=== PATIENT | male | born 1960 | race Caucasian/White ===

== ENCOUNTER → 2017-10-18 | Outpatient (CLI) | payer OTHER | END | disposition home or self-care (01) | LOC: LABWHC1 07:02 | PROVIDERS: ATTEND Internal Medicine Cardiovascular Disease | DX: I25.10 Atherosclerotic heart disease of native coronary artery without angina pectoris (principal) | CPT/HCPCS: 36415; 83704 ==

== ENCOUNTER → 2018-02-22 | Outpatient (CLI) | payer OTHER | END | disposition home or self-care (01) | LOC: LABWHC1 07:38 | PROVIDERS: ATTEND Internal Medicine Cardiovascular Disease | DX: I25.10 Atherosclerotic heart disease of native coronary artery without angina pectoris (principal) | CPT/HCPCS: 36415; 83704 ==

== ENCOUNTER → 2018-07-16 | Outpatient (CLI) | payer OTHER | END | disposition home or self-care (01) | LOC: LABWHC1 07:07 | PROVIDERS: ATTEND Internal Medicine Cardiovascular Disease | DX: I25.10 Atherosclerotic heart disease of native coronary artery without angina pectoris (principal) | CPT/HCPCS: 36415; 83704 ==

== ENCOUNTER → 2018-09-09 | Outpatient (CLI) | payer OTHER | END | disposition home or self-care (01) | LOC: LABWHC1 08:33 | PROVIDERS: ATTEND Internal Medicine Cardiovascular Disease | DX: I25.10 Atherosclerotic heart disease of native coronary artery without angina pectoris (principal) | CPT/HCPCS: 36415; 83704 ==

== ENCOUNTER 2019-12-13 16:15 | Emergency (ER) | payer MEDICARE, OTHER ==
[2019-12-13 16:20] VITALS: TEMP 98.1
[2019-12-13] MEDS ORDERED: LIDOCAINE 1% INJ 10MG/ML (20 ML MDV) SQ ONE (16:35)
[2019-12-13 16:58] LABS: Basophils # (A) 0.1 k/uL (0-0.2); Basophils % (A) 1 %; Eosinophils # (A) 0.4 k/uL (0-0.7); Eosinophils % (A) 4 %; HCT 48.4 % (39.0-53.0); HGB 16.3 gm/dL (13.0-17.5); Lymphocytes # (A) 3.6 k/uL (1.0-4.8); Lymphocytes % (A) 34 %; MCH 30.8 pg (25.0-35.0); MCHC 33.6 g/dL (31.0-37.0); MCV 91.7 fL (80.0-100.0); Mean Platelet Volume 7.4; Monocytes # (A) 0.5 k/uL (0-1.0); Monocytes % (A) 5 %; Neutrophils # (A) 5.8 k/uL (1.3-7.7); Neutrophils % (A) 55 %; Platelet Count 358 k/uL (150-450); RBC 5.28 m/uL (4.30-5.90); RDW 13.4 % (11.5-15.5); WBC 10.7 k/uL (3.8-10.6)
--- NOTE | 2019-12-13 17:01 | ED ---
General Adult HPI - General Chief complaint: Skin/Abscess/Foreign Body Stated complaint: finger injury Time Seen by Provider: 12/13/19 16:15 Source: patient, RN notes reviewed, old records reviewed Mode of arrival: ambulatory Limitations: no limitations - History of Present Illness Initial comments: This is a 59-year-old male who presents emergency Department complaining of left finger infection. Patient states she slammed between 2 logs last week and since then has gotten swollen and tender. Patient states it looks like there is pus under his skin. Patient also complains that he noticed this morning there is a little swelling just behind the angle of his left jaw and he wonders if that was related. Patient denies any fever chills. Patient denies any red streaking up the finger hand or arm. Patient denies any other symptoms at this time. - Related Data Home Medications Medication Instructions Recorded Confirmed Fenofibrate Nanocrystallized 145 mg PO DAILY 05/11/15 06/27/17 [Tricor] Ondansetron Odt [Zofran Odt] 4 mg PO BID 06/27/17 06/27/17 Saxagliptin HCl [Onglyza] 2.5 mg PO DAILY 06/27/17 06/27/17 metFORMIN HCL ER [Glucophage Xr] 500 mg PO DAILY 06/27/17 06/27/17 Previous Rx's Medication Instructions Recorded Aspirin 81 mg PO DAILY #30 chew 06/30/17 Atorvastatin [Lipitor] 80 mg PO HS #30 tab 06/30/17 Clopidogrel [Plavix] 75 mg PO DAILY #30 tab 06/30/17 Losartan [Cozaar] 50 mg PO DAILY #30 tab 06/30/17 Metoprolol Tartrate [Lopressor] 25 mg PO BID #60 tab 06/30/17 Nitroglycerin Sl Tabs [Nitrostat] 0.4 mg SUBLINGUAL Q5M PRN #25 tab 06/30/17 Spironolactone [Aldactone] 12.5 mg PO DAILY #30 tab 06/30/17 Varenicline [Chantix Starter Pack] 0.5 mg PO PC-BRKFST #120 tab 06/30/17 Sulfamethoxazole/Trimethoprim 2 each PO BID 7 Days #28 tablet 12/13/19 [Bactrim DS 800-160 mg] Allergies Allergy/AdvReac Type Severity Reaction Status Date / Time No Known Allergies Allergy Verified 12/13/19 16:20 Review of Systems ROS Statement: Those systems with pertinent positive or pertinent negative responses have been documented in the HPI. ROS Other: All systems not noted in ROS Statement are negative. Past Medical History Past Medical History: Diabetes Mellitus, Hyperlipidemia, Hypertension History of Any Multi-Drug Resistant Organisms: None Reported Additional Past Surgical History / Comment(s): vasectomy Past Anesthesia/Blood Transfusion Reactions: No Reported Reaction Past Psychological History: No Psychological Hx Reported Smoking Status: Current every day smoker Past Alcohol Use History: None Reported Past Drug Use History: None Reported General Exam - General Exam Comments Initial Comments: GENERAL Patient is well-developed and well-nourished. Patient is in mild distress. EYES Patient's pupils are equal and round. Extraocular motion is intact SKIN Patient has slight swelling behind the angle of the jaw on the left I do not feel a definitive lymph node but there is some slight swelling NEURO The patient is alert and oriented 3 PYSCH Patient has normal interpersonal interactions. MUSCULOSKELETAL Left middle finger has paronychia that has spread and extended down the finger a little bit to the PIP joint dorsally. You can see the pus under the skin on the dorsal aspect of the finger and a little bit on the medial aspect of the finger but there is none in the pulp of the finger Limitations: no limitations Course Vital Signs 12/13/19 16:17 Temperature 98.1 F Pulse Rate 90 Respiratory 18 Rate Blood Pressure 140/77 O2 Sat by Pulse 99 Oximetry Procedures - Incision & Drainage Consent Obtained: verbal consent Site: other (Left middle finger) Anesthetic Used: lidocaine 1% Amount (mLs): 4 (A digital block was performed) I&D Cleaning Method: Betadine Scalpel Used: #15 I&D Drainage Obtained: Pus, Blood Culture Obtained?: Yes Complications: bleeding Patient Tolerated Procedure: well Medical Decision Making - Medical Decision Making X-rays negative for fracture but does show an area of inflammation of the tissue. I performed an I&D drinking quite a bit of pus out. Patient also received 2 g of Ancef in the emergency department - Lab Data Result diagrams: 12/13/19 16:45 12/13/19 16:45 Lab Results 12/13/19 12/13/19 Range/Units 16:45 16:45 WBC 10.7 H (3.8-10.6) k/uL RBC 5.28 (4.30-5.90) m/uL Hgb 16.3 (13.0-17.5) gm/dL Hct 48.4 (39.0-53.0) % MCV 91.7 (80.0-100.0) fL MCH 30.8 (25.0-35.0) pg MCHC 33.6 (31.0-37.0) g/dL RDW 13.4 (11.5-15.5) % Plt Count 358 (150-450) k/uL Neutrophils % 55 % Lymphocytes % 34 % Monocytes % 5 % Eosinophils % 4 % Basophils % 1 % Neutrophils # 5.8 (1.3-7.7) k/uL Lymphocytes # 3.6 (1.0-4.8) k/uL Monocytes # 0.5 (0-1.0) k/uL Eosinophils # 0.4 (0-0.7) k/uL Basophils # 0.1 (0-0.2) k/uL Sodium 137 (137-145) mmol/L Potassium 4.1 (3.5-5.1) mmol/L Chloride 104 (98-107) mmol/L Carbon Dioxide 19 L (22-30) mmol/L Anion Gap 14 mmol/L BUN 27 H (9-20) mg/dL Creatinine 0.90 (0.66-1.25) mg/dL Est GFR (CKD-EPI)AfAm >90 (>60 ml/min/1.73 sqM) Est GFR (CKD-EPI)NonAf >90 (>60 ml/min/1.73 sqM) Glucose 193 H (74-99) mg/dL Calcium 10.5 H (8.4-10.2) mg/dL Total Bilirubin 0.3 (0.2-1.3) mg/dL AST 22 (17-59) U/L ALT 18 (4-49) U/L Alkaline Phosphatase 97 (38-126) U/L Total Protein 8.1 (6.3-8.2) g/dL Albumin 4.9 (3.5-5.0) g/dL Amylase 245 H (30-110) U/L Lipase 182 (23-300) U/L Disposition Clinical Impression: Paronychia of left middle finger, Acute parotitis Disposition: HOME SELF-CARE Instructions (If sedation given, give patient instructions): Paronychia (ED), Abscess Incision and Drainage (DC) Prescriptions: Sulfamethoxazole/Trimethoprim [Bactrim DS 800-160 mg] 2 each PO BID 7 Days #28 tablet Is patient prescribed a controlled substance at d/c from ED?: No Referrals: Linda Light MD [Primary Care Provider] - 1-2 days Time of Disposition: 17:22
--- NOTE | 2019-12-13 17:03 | XR ---
EXAMINATION TYPE: XR finger LT DATE OF EXAM: 12/13/2019 COMPARISON: NONE HISTORY: TECHNIQUE: Three views are submitted. FINDINGS: The osseous structures are intact. The joint spaces are preserved and there is no acute fracture or dislocation. There is be soft tissue edema and emphysema. IMPRESSION: 1. No definite acute fracture or dislocation if symptoms persist, follow-up study in 7 to 10 days wo uld be suggested 2. Soft tissue edema and emphysema could be posttraumatic correlate clinically to exclude infection.
[2019-12-13 17:20] LABS: ALT 18 U/L (4-49); AST 22 U/L (17-59); African American GFR (CKD) >90 (>60 ml/min/1.73 sqM); Albumin 4.9 g/dL (3.5-5.0); Alkaline Phosphatase 97 U/L (38-126); Amylase 245 U/L (30-110); Anion Gap 14 mmol/L; Blood Urea Nitrogen 27 mg/dL (9-20); Calcium 10.5 mg/dL (8.4-10.2); Carbon Dioxide 19 mmol/L (22-30); Chloride 104 mmol/L (98-107); Glucose 193 mg/dL (74-99); Non-African American GFR(CKD) >90 (>60 ml/min/1.73 sqM); Potassium 4.1 mmol/L (3.5-5.1); Sodium 137 mmol/L (137-145); Total Bilirubin 0.3 mg/dL (0.2-1.3); Total Protein 8.1 g/dL (6.3-8.2)
[2019-12-13] MEDS ORDERED: SULFAMETH-TMP DS STARTER PACK 2 TAB BTL PO STA (17:33)
[2019-12-13 17:55] VITALS: BP 117/72; PULSE 80
[2019-12-13 18:04] VITALS: RESP 20
== END 2019-12-13 18:05 | disposition home or self-care (01) ==
LOC: EC 16:15
DX: L03.012 Cellulitis of left finger (principal); K11.21 Acute sialoadenitis; E11.9 Type 2 diabetes mellitus without complications; E78.5 Hyperlipidemia, unspecified; F17.200 Nicotine dependence, unspecified, uncomplicated; Z79.84 Long term (current) use of oral hypoglycemic drugs; Z79.899 Other long term (current) drug therapy
CPT/HCPCS: 36415; 80053; 82150; 83690; 85025; 87070; 87205; 87077; 87186; 73140; 99284; 10060; 96365; J0690; J2001

== ENCOUNTER → 2020-06-24 | Outpatient (CLI) | payer MEDICARE, OTHER ==
[2020-06-24 15:36] LABS: African American GFR (CKD) 111.7 (60.0-200.0); Anion Gap 10.6 mmol/L (4.00-12.00); Carbon Dioxide 21.4 mmol/L (21.6-31.8); Chol/HDL Ratio 4.81; Non-African American GFR(CKD) 96.4 (60.0-200.0); Potassium 4.3 mmol/L (3.5-5.5)
[2020-06-24 16:46] LABS: Hemoglobin A1C 7.6 % (4.0-6.0)
== END | disposition home or self-care (01) ==
LOC: LABWHC1 08:17
PROVIDERS: ATTEND Internal Medicine Interventional Cardiology
DX: I25.10 Atherosclerotic heart disease of native coronary artery without angina pectoris (principal); E78.5 Hyperlipidemia, unspecified; E11.9 Type 2 diabetes mellitus without complications; I10 Essential (primary) hypertension
CPT/HCPCS: 36415; 80051; 80061; 82550; 82565; 83036; 83721; 84450; 84460; 84520

== ENCOUNTER → 2023-02-15 | Outpatient (CLI) | payer MEDICARE, OTHER ==
[2023-02-15 16:09] LABS: Chol/HDL Ratio 12.11 Ratio; LDL Cholesterol,Calculated 146.4 mg/dL (0.0-131.0)
[2023-02-15 16:10] LABS: ALT 34 U/L (10-49); AST 47 U/L (14-35); Albumin 4.6 d/dL (3.8-4.9); Albumin/Globulin Ratio 1.77 Ratio (1.60-3.17); Alkaline Phosphatase 63 U/L (41-126); Blood Urea Nitrogen 22.8 mg/dL (9.0-27.0); Carbon Dioxide 22.2 mmol/L (21.6-31.8); Chloride 100 mmol/L (96-109); Globulin 2.6 d/dL (1.6-3.3); Glucose 105 mg/dL (70-110); Potassium 4.4 mmol/L (3.5-5.5); Sodium 139 mmol/L (135-145); Total Bilirubin 0.4 mg/dL (0.3-1.2); Total Protein 7.2 d/dL (6.2-8.2)
== END | disposition home or self-care (01) ==
LOC: LABWHC1 11:01
PROVIDERS: ATTEND Nurse Practitioner
DX: I25.10 Atherosclerotic heart disease of native coronary artery without angina pectoris (principal); E78.5 Hyperlipidemia, unspecified
CPT/HCPCS: 36415; 80053; 80061; 83721

== ENCOUNTER → 2023-07-10 | Outpatient (CLI) | payer MEDICARE, OTHER ==
--- NOTE | 2023-07-10 08:34 | CTL ---
EXAMINATION TYPE: CT Low Dose Lung DATE OF EXAM ORDERED: 07/10/2023 HISTORY: 62-year-old male Z12.2 Lung cancer screening, Z72.0 TOBACCO USE. Current smoker with 78 pack -year history. Lung cancer screening CT DLP: 140.[address] CTDI: 3.90 mGy Automated exposure control for dose reduction was used. SCREENING VISIT: Baseline COMPARISON: None TECHNIQUE: Low dose computed tomography scan was performed through the chest with coronal and sagitta l reconstructions. CT DIAGNOSTIC QUALITY: Satisfactory FINDINGS: The heart is normal size without pericardial effusion. Extensive three-vessel coronary artery calcifi cations are present. Mild atherosclerotic arch calcifications with conventional arch vessel branching anatomy. No thoracic lymphadenopathy by CT size criteria. Mildly enlarged caliber to the main right and left pulmonary arteries measuring up to 2.9 cm suggesti ng underlying pulmonary artery hypertension. There is [id number] diffuse bronchial wall thickening and mild upper lung emphysematous change. 3 mm lateral left upper lobe pulmonary nodule, axial image 82. 4 mm left midlung pulmonary nodule, axial image 129. 5 mm lateral left lower lobe pulmonary nodule, axial image 196. 5 mm left lower lobe pulmonary nodule just adjacent, axial image 211. 4 mm right basilar pulmonary nodule, axial image 216. 3 mm posterior right basilar pulmonary nodule, axial image 215. No consolidation or pleural effusion. Visualized upper abdomen shows no gross abnormality. Bones: Scattered mild degenerative disc disease throughout. IMPRESSION: 1. LungRADS 2, benign; scattered 5 mm and smaller pulmonary nodules on baseline screening. 2. COPD with mild emphysema. Recommend smoking cessation. 3. Extensive three-vessel coronary artery calcifications. 4. Possible underlying pulmonary arterial hypertension. CT LUNG RAD AND CT CHEST RECOMMENDATION: Lung-Rad 2 Benign Appearance or Behavior: Continue annual sc reening with LDCT in 12 months. S Modifier (other clinically significant findings): None
== END | disposition home or self-care (01) ==
LOC: RADCTMAIN 06:22
PROVIDERS: ATTEND Internal Medicine Geriatric Medicine
DX: Z12.2 Encounter for screening for malignant neoplasm of respiratory organs (principal); I25.10 Atherosclerotic heart disease of native coronary artery without angina pectoris; J43.9 Emphysema, unspecified; R91.8 Other nonspecific abnormal finding of lung field; F17.210 Nicotine dependence, cigarettes, uncomplicated
CPT/HCPCS: 71271

== ENCOUNTER → 2023-10-16 | Outpatient (CLI) | payer MEDICARE, OTHER ==
[2023-10-16 15:48] LABS: Chol/HDL Ratio 6.25 Ratio; HDL Cholesterol 26.7 mg/dL (40.00-60.00); VLDL Calculation 101.4 mg/dL (5.00-40.00)
[2023-10-16 15:58] LABS: LDL Cholesterol,Direct Reflex 80.6 mg/dL (0.00-129.00)
== END | disposition home or self-care (01) ==
LOC: LABWHC1 07:09
PROVIDERS: ATTEND Internal Medicine Geriatric Medicine
DX: E78.5 Hyperlipidemia, unspecified (principal); I25.10 Atherosclerotic heart disease of native coronary artery without angina pectoris
CPT/HCPCS: 36415; 80061; 83721

== ENCOUNTER → 2024-07-30 | Outpatient (CLI) | payer MEDICARE, OTHER ==
--- NOTE | 2024-08-05 14:20 | CTL ---
EXAMINATION TYPE: CT Low Dose Lung DATE OF EXAM: 07/30/2024 6:41 AM COMPARISON: None. CLINICAL INDICATION: Male, 63 years old with history of [id number] NICOTINE DEPENDENCE, CIGARETTES, UNCOM PLICA, tobacco use x53 years 2ppd, History of tobacco use. TECHNIQUE: Low Dose CT Lung Screening, Low dose computed tomography scan was performed through the est at 1 millimeter thick sections and reconstructed images in the coronal plane at 1 mm thick sectio ns. IV CONTRAST USED: None. SCREENING VISIT: First visit CT DLP: 121.7 mGycm, Automated exposure control for dose reduction was used. CT CTDI: 3.3 mGy FINDINGS: CT DIAGNOSTIC QUALITY: Satisfactory LUNG NODULES: There are a few scattered sub-5 mm pulmonary nodules unchanged from prior study. LUNGS: COPD: Severity: Mild Fibrosis: Severity:None Lymph nodes: None Other findings: None RIGHT PLEURAL SPACE: Effusion: None Calcification: None Thickening: None Pneumothorax: None LEFT PLEURAL SPACE: Effusion: None Calcification: None Thickening: None Pneumothorax: None HEART: Heart Size: Mildly enlarged Coronary calcification: Moderate Pericardial effusion: None OTHER FINDINGS: Upper abdomen: No significant abnormality Bony thorax: Degenerative changes Supraclavicular region: No significant abnormalityOther: No significant abnormalityI IMPRESSION: 1. There are a few scattered sub-5 mm pulmonary nodules unchanged from prior study. 2. Mild emphysema. CT LUNG RAD AND CT CHEST RECOMMENDATION: Category 2 benign appearance and/or behavior. S Modifier (other clinically significant findings): Moderate coronary artery calcifications [facility], , 08/05/2024 2:17 PM
== END | disposition home or self-care (01) ==
LOC: RADCTMAIN 06:19
PROVIDERS: ATTEND Internal Medicine Geriatric Medicine
DX: I25.10 Atherosclerotic heart disease of native coronary artery without angina pectoris (principal); J43.9 Emphysema, unspecified; F17.210 Nicotine dependence, cigarettes, uncomplicated; R91.1 Solitary pulmonary nodule
CPT/HCPCS: 71271

== ENCOUNTER → 2024-08-12 | Outpatient (CLI) | payer MEDICARE, OTHER ==
[2024-08-12 17:26] LABS: African American GFR (CKD) >90 (>60 ml/min/1.73 sqM); Blood Urea Nitrogen 34 mg/dL (9-20); Non-African American GFR(CKD) 79 (>60 ml/min/1.73 sqM)
--- NOTE | 2024-08-15 23:03 | CT ---
EXAMINATION TYPE: CT chest w con DATE OF EXAM: 08/12/2024 5:51 PM COMPARISON: 07/30/2024 CLINICAL INDICATION: Male, 63 years old with history of R91.1 SOLITARY PULMONARY NODULE, F/u solitary pulmonary nodule. TECHNIQUE: Axial images were obtained at 5 mm thick sections. Reconstructed images are reviewed on [employer] computer in the coronal plane. Contrast used:100ml mL of Isovue 300 with IV Contrast, (none if empty) Oral contrast used: (none if empty) CT DLP: 445.6 mGycm, Automated exposure control for dose reduction was used. FINDINGS: Portion of the thyroid visualized is normal. The small pulmonary nodules are not as well-visualized on the standard CT chest. These can be followe d with a follow-up low-dose CT chest one year. r The ascending aorta diameter at the level of the main pulmonary artery is 3.3 cm. The main pulmon sukumar artery diameter at the bifurcation is 2.2 cm. Dense coronary calcifications are again noted. Cons ider additional cardiac workup such as with stress myocardial study. Limited CT sections are obtained through the upper abdomen. Abdomen is essentially unremarkable. IMPRESSION: 1. No suspicious acute changes. 2. Chronic nodularity, low-dose CT chest in one year recommended. 3. Fairly extensive coronary artery calcification. Patient is that cardiac risk. Cardiac workup could be considered [facility], , 08/15/2024 11:01 PM
== END | disposition home or self-care (01) ==
LOC: RADCTMAIN 16:07
PROVIDERS: ATTEND Internal Medicine Geriatric Medicine
DX: I25.10 Atherosclerotic heart disease of native coronary artery without angina pectoris (principal); R91.1 Solitary pulmonary nodule
CPT/HCPCS: 71260; 82565; 84520

== ENCOUNTER → 2024-09-30 | Outpatient (CLI) | payer MEDICARE, OTHER ==
[2024-09-30 10:20] LABS: Chol/HDL Ratio 8.68 Ratio; HDL Cholesterol 24.3 mg/dL (40.00-60.00); VLDL Calculation 118.4 mg/dL (5.00-40.00)
== END | disposition home or self-care (01) ==
LOC: LABWHC1 07:06
PROVIDERS: ATTEND Internal Medicine Interventional Cardiology
DX: I25.10 Atherosclerotic heart disease of native coronary artery without angina pectoris (principal); E78.00 Pure hypercholesterolemia, unspecified
CPT/HCPCS: 36415; 80061; 82550; 83721; 84450; 84460